=== PATIENT | female | born 1955 | race Caucasian/White ===

== ENCOUNTER → 2018-01-09 | Outpatient (CLI) | payer OTHER | LOC: M SLEEP 07:45 | DX: G47.33 Obstructive sleep apnea (adult) (pediatric) (principal) | CPT/HCPCS: 95811 ==

== ENCOUNTER 2024-07-02 11:30 | Observation (INO) | payer MEDICARE, OTHER ==
[~2024-07-02] VITALS: Ht 167.6 cm; Wt 101.6 kg
[2024-07-02] MEDS: LOSARTAN 50MG TABLET PO SCH (09:00)
[2024-07-02 12:59] LABS: BASO % 0.8 % (0.0-1.0); EOS # 0.1 10^3/uL (0.0-0.5); EOS % 2.9 % (0.0-3.0); HEMATOCRIT 43.3 % (36.0-47.0); HEMOGLOBIN 14.9 g/dl (12.0-15.5); LYMPH # 1.1 10^3/uL (1.5-5.0); MEAN CORPUSCULAR HEMOGLOBIN 31.2 pg (27.0-33.0); MEAN CORPUSCULAR HGB CONC 34.4 g/dl (32.0-36.5); MEAN CORPUSCULAR VOLUME 90.8 fl (80.0-96.0); MONO # 0.7 10^3/uL (0.0-0.8); MONO % 15.3 % (2.0-8.0); NEUTROPHILS # 2.8 10^3/uL (1.5-8.5); NEUTROPHILS % 57.4 % (36.0-66.0); PLATELET COUNT, AUTOMATED 224 10^3/uL (150-450); RED BLOOD COUNT 4.77 10^6/uL (4.00-5.40); WHITE BLOOD COUNT 4.8 10^3/uL (4.0-10.0)
[2024-07-02 13:19] LABS: ETHYL ALCOHOL (ETHANOL) < 0.003 % (0.000-0.010)
[2024-07-02 13:21] LABS: ALBUMIN 3.8 G/DL (3.2-5.2); ALKALINE PHOSPHATASE 60 U/L (35-104); ALT/SGPT 22 U/L (7.0-40); AST/SGOT 20 U/L (<34); BILIRUBIN,DIRECT 0.1 MG/DL (<0.4); BILIRUBIN,TOTAL 0.5 MG/DL (0.3-1.2); BLOOD UREA NITROGEN 15 MG/DL (9-23); CALCIUM LEVEL 9.2 MG/DL (8.3-10.6); CARBON DIOXIDE LEVEL 26 MMOL/L (20-31); CHLORIDE LEVEL 105 MMOL/L (98-107); CREATININE FOR GFR 0.61 MG/DL (0.55-1.30); GLOMERULAR FILTRATION RATE > 60.0 (>39); GLUCOSE, FASTING 116 MG/DL (74-106); POTASSIUM SERUM 4.4 MMOL/L (3.5-5.1); SALICYLATE LEVEL < 3.0 MG/DL (<30); SODIUM LEVEL 140 MMOL/L (136-145); TOTAL PROTEIN 7.6 G/DL (5.7-8.2)
[2024-07-02 13:23] LABS: THYROID STIMULATING HORMONE 1.858 uIU/ML (0.55-4.78)
[2024-07-02 13:27] LABS: CPK CREATINE PHOSPHOKINASE 84 U/L (34-145)
[2024-07-02 13:30] LABS: AMPHETAMINES LEVEL URINE NEGATIVE (NEGATIVE); BARBITURATES URINE NEGATIVE (NEGATIVE); BENZODIAZEPINES URINE NEGATIVE (NEGATIVE); CANNABINOIDS URINE NEGATIVE (NEGATIVE); COCAINE METABOLITE URINE NEGATIVE (NEGATIVE); METHADONE URINE NEGATIVE (NEGATIVE); OPIATES URINE NEGATIVE (NEGATIVE); PHENCYCLIDINE URINE NEGATIVE (NEGATIVE)
[2024-07-02] MEDS ORDERED: OMEP-173 PO (15:02)
[2024-07-02] MEDS ORDERED: VITA-148 PO (15:02)
[2024-07-02] MEDS ORDERED: LOSA100T46 PO (15:02)
[2024-07-02] MEDS ORDERED: PROP10TA56 PO (15:02)
[2024-07-02] MEDS ORDERED: D-50CAP PO (15:02)
[2024-07-02] MEDS ORDERED: VITA500T40 PO (15:02)
[2024-07-02] MEDS ORDERED: BUPR-597 PO (15:03)
[2024-07-02] MEDS ORDERED: HOME MED LIST COMPLETE! XX SCH (15:10)
[2024-07-02] MEDS ORDERED: ACETAMINOPHEN 325 MG TAB PO PRN (16:00)
[2024-07-02] MEDS: POLYVINYL ALCOHOL OPHTH SOLN 15ML (LIQUITEARS) OU PRN (22:10)
[2024-07-03] MEDS ORDERED: SIMETHICONE 80MG CHEW TAB PO PRN (03:25)
[2024-07-03] MEDS: ONDANSETRON 4MG 2ML VIAL IV ONE (05:17)
[2024-07-03] MEDS ORDERED: LOSARTAN 50MG TABLET PO SCH (09:00)
[2024-07-03] MEDS: CYANOCOBALAMIN 500 MCG TAB PO SCH (09:35)
[2024-07-03] MEDS: OMEPRAZOLE 20MG CAP PO SCH (09:35)
[2024-07-03 09:38] VITALS: BP 193/83
[2024-07-03] MEDS: PROPRANOLOL 10 MG TAB PO SCH (09:38)
[2024-07-03] MEDS ORDERED: SIME80TA16 PO (10:06)
[2024-07-03 10:50] VITALS: BP 141/82; TEMP 97.6; O2SAT 98
== END 2024-07-03 10:50 | disposition home or self-care (01) ==
LOC: M ED 11:30 → M ED INP 11:31
PROVIDERS: ADMIT Student in an Organized Health Care Education/Training Program; ATTEND Student in an Organized Health Care Education/Training Program
DX: T43.291A Poisoning by other antidepressants, accidental (unintentional), initial encounter (principal); F39 Unspecified mood [affective] disorder; I10 Essential (primary) hypertension; K21.9 Gastro-esophageal reflux disease without esophagitis; G47.33 Obstructive sleep apnea (adult) (pediatric); Z98.84 Bariatric surgery status; Z79.899 Other long term (current) drug therapy; Z88.5 Allergy status to narcotic agent; Z91.041 Radiographic dye allergy status
CPT/HCPCS: 80048; 80076; 80143; 80307; 82077; 82550; 84443; 85025; 93005; 93041; 94660; 94760; 96374; 99285; G0378; J2405